=== PATIENT | female | born 1990 | race American Indian/Alaskan Native ===

== ENCOUNTER 2017-03-14 01:53 | Observation (INO) | payer OTHER ==
--- NOTE | 2017-03-14 02:51 | Ultrasound Report ---
FINAL REPORT PROCEDURE: US OB \T\gt; = 14 WEEKS FETUS TECHNIQUE: Real-time limited sonographic examination was performed for evaluation of placenta and fluid volume for each fetus with image documentation (1 or more fetuses). CPT 68059 HISTORY: FM, ELISABET, presentation, r/o abbruption, placenta p/ vag bleed COMPARISON: No prior studies are available for comparison. FINDINGS: MATERNAL Uterus: Within normal limits . Cervix length: 4.1 cm. Internal Os: Closed . FETUS IUP: Single living intrauterine . Position: Transverse. Placental position: Posterior, marginal previa. No abruption. Amniotic fluid volume: Normal . Heart rate and rhythm: 152 BPM, Regular . anatomic survey: Normal . MEASUREMENTS BPD: 6.4 centimeter. HC: 24.1 centimeter. AC: 20.9 centimeter. FL: 4.7 centimeter. Mean Gestational Age (composite criteria): 25 weeks 6 days. Ratio biometry: Normal . Estimated Weight: 878 grams. Interval growth: No prior studies. Estimated Due Date (earliest scan): 06/21/2017. IMPRESSION: 1. Single living intrauterine gestation at approximately 25 weeks 6 days. 2. EDC by US 06/21/2017.
--- NOTE | 2017-03-14 06:54 | History and Physical Report ---
History of Present Illness Date of examination: 03/14/17 Chief complaint: Vaginal bleeding History of present illness: 27-year-old at 25+6 weeks presents with above complaints and issues, she is a [facility] patient. Essential history this patient with known marginal previa with a prior bleed returns for the second episode of bleeding. She is currently incarcerated and I am unsure of the severity of her 1st bleed. She was not admitted to the hospital or any testing performed. In triage, her pad worn ~ 30 minutes ago is lightly stained. No active bleeding noted at this time. She complains of feeling contractions intermittently, no obvious contractions noted on the monitor. Ultrasound obtained today shows posterior marginal previa, no abruption. Cervical length is 4.1 cm and internal os is closed. Position is transverse. Estimated weight is 878 g. Past History Past Medical History: asthma (mild), migraines Past Surgical History: D&C (performed 09/11/2016) [employer] History: herpes. denies: chlamydia, gonorrhea, hepatitis B, hepatitis C, HIV, syphilis, trichomonas Social history: single, smoking, full code. denies: alcohol abuse, prescription drug abuse, IV drug use - Obstetrical History Expected Date of Delivery: 06/21/17 Actual Gestation: 25 Week(s) 6 Day(s) : 6 Para: 5 Hx # Term Pregnancies: 3 Medications and Allergies Allergies Allergy/AdvReac Type Severity Reaction Status Date / Time No Known Allergies Allergy Unverified 03/14/17 02:09 Review of Systems Constitutional: no fever, no chills, no weakness, no chronic headaches Cardiovascular: no chest pain, no orthopnea, no syncope, no lightheadedness, no shortness of breath, no dyspnea on exertion, no high blood pressure, no decreased exercise tolerance Respiratory: no cough with sputum, no excessive sputum, no shortness of breath, no dyspnea on exertion Gastrointestinal: no abdominal pain, no nausea, no vomiting, no heartburn Genitourinary: vaginal bleeding, no vaginal discharge, no leakage of fluid, no dysuria - Vital Signs Vital signs: Vital Signs Pulse Pulse Ox 102 H 96 03/14/17 03:07 03/14/17 03:07 Temp Pulse Resp BP Pulse Ox 108 H 105/60 82 L 03/14/17 06:53 03/14/17 06:39 03/14/17 06:53 - Physical Exam Cardiovascular: Regular rate, Normal S1, Normal S2 Lungs: Positive: Clear to auscultation, Normal air movement Abdomen: Positive: normal appearance, soft. Negative: distention, tenderness, guarding, rigidity Genitourinary (Female): Positive: normal external genitalia Uterus: Positive: enlarged (EFW ~ 1000). Negative: tender Adnexa: both: normal Extremities: Positive: normal - Obstetrical FHR: category 1 Results Result Diagrams: 03/14/17 10:22 All other labs normal. Assessment and Plan A: 27-year-old at 25+6 with Posterior marginal previa -Cat 1 tracing -No CTX's on toco -Pad lightly stained x ~ 30 min Issues -?2nd Episode of bleed -Short interval preg (s/p D&C at ~ 16 wks in 09/11/16) -Currently incarcerated -Transverse lie P: -It's possible her bleeding has resolved. -Will place pad at this time and observe -If patient still bleeding, will start magnesium per protocol, Celestone course and MFM consultation -Disposition after observation 1 hour -Keep nothing by mouth - Patient Problems (1) 25 to 26 weeks gestation of Current Visit: Yes Status: Acute (2) Marginal placenta previa Current Visit: Yes Status: Acute
[2017-03-14] MEDS ORDERED: COLACE PO PRN (07:04)
[2017-03-14] MEDS: ZOFRAN IV PRN ×3 (09:17→20:18)
[2017-03-14] MEDS: TYLENOL PO PRN ×3 (09:24→20:18)
--- NOTE | 2017-03-14 09:50 | Event Note ---
Date: 03/14/17 seen and examined, her pad is lightly stained no active bleeding. She is not amanda on the monitor. Plan at this point is to observe until 11-12 if still stable with allowed to eat and likely discharge home later in the afternoon
[2017-03-14] MEDS ORDERED: PRENATAL VITAMIN PO SCH (10:00)
--- NOTE | 2017-03-14 10:36 | Ultrasound Report ---
ULTRASOUND BIOPHYSICAL PROFILE: History: Decreased movement, bleeding Technique: Transabdominal ultrasound with Doppler interrogation. 2 - breathing movements 2 - movements 2 - posture and tone 2 - Qualitative amniotic fluid volume 8 - TOTAL SCORE OF POSSIBLE 8 Heart Rate (bpm) 152
[2017-03-14 11:15] LABS: Basophils % (Auto) 0.4 % (0.0-1.8); Eosinophils % (Auto) 2.9 % (0.0-4.3); Hematocrit 33.3 % (30.3-42.9); Mean Corpuscular HGB Conc 33 % (30-34); Mean Corpuscular Hemoglobin 30 pg (28-32); Mean Corpuscular Volume 92 fl (79-97); Platelet Count 212 K/mm3 (140-440); Red Blood Count 3.63 M/mm3 (3.65-5.03); Red Cell Distribution Width 18.7 % (13.2-15.2); White Blood Count 6.2 K/mm3 (4.5-11.0)
--- NOTE | 2017-03-14 12:19 | Event Note ---
Date: 03/14/17 Patient seen, still having intermittent episodes of bleeding. Her pad remains slightly stained but when she goes to use the restroom, she does have bright red blood running down her legs. She is still not amanda, vitals are stable. Plan is to allow patient to eat at this time. We'll keep patient in house for 24 hours observation. Have placed a new fresh pad, if pad shows evidence of severe heavy bleeding, we'll start Celestone course and magnesium.
[2017-03-14] MEDS ORDERED: LACTATED RINGERS 1,000 ML ONE (18:21)
[2017-03-14] MEDS: D5LR 1,000 ML IV SCH (20:10)
--- NOTE | 2017-03-14 20:36 | History and Physical Report ---
History of Present Illness Date of admission: 03/14/17 07:40 Chief complaint: I have a rash History of present illness: 27 YO Female with Migraine Headache, Asthma, HSV at 25 weeks gestation admitted to [facility] for evalaution of vaginal bleeding. Consult placed by Dr. Hurst for evaluation of rash. Pt seen and evaluated in mother-baby unit. Pt states that she has experienced a rash to her trunk, arms, and back over the past week. Pt states that she has been given a "cream" for the rash and that it has gotten better, but is still presents. Pt deneis fever, chill, CP, Palpitations, NVD, itching, or recent known ill contacts. Past History Past Medical History: other (migraine, asthma, HSV) Past Surgical History: Other (D&C) Social history: single, smoking, full code. denies: alcohol abuse, prescription drug abuse, IV drug use Medications and Allergies Allergies Allergy/AdvReac Type Severity Reaction Status Date / Time No Known Allergies Allergy Unverified 03/14/17 02:09 Active Meds: Active Medications Acetaminophen (Tylenol) 650 mg PO Q4H PRN PRN Reason: Pain MILD(1-3)/Fever >100.5/TELLEZ Last Admin: 03/14/17 20:18 Dose: 650 mg Docusate Sodium (Colace) 100 mg PO Q12H PRN PRN Reason: Constipation Last Admin: 03/14/17 13:44 Dose: 100 mg Dextrose/Lactated Ringer's (D5lr) 1,000 mls @ 125 mls/hr IV DIRECT MIRANDA Last Admin: 03/14/17 20:10 Dose: 125 mls/hr Multivitamins/Iron/Calcium ( Vitamin) 1 each PO QDAY MIRANDA Last Admin: 03/14/17 09:26 Dose: 1 each Ondansetron HCl (Zofran) 4 mg IV Q6H PRN PRN Reason: Nausea And Vomiting Last Admin: 03/14/17 20:18 Dose: 4 mg Review of Systems Constitutional: no weight loss, no weight gain, no fever, no chills, no sweats Ears, nose, mouth and throat: no ear pain, no ear discharge, no tinnitis, no decreased hearing, no nose pain Breasts: no change in shape, no swelling, no mass Cardiovascular: no chest pain, no orthopnea, no palpitations, no rapid/ irregular heart beat, no edema, no syncope, no shortness of breath Respiratory: no cough, no cough with sputum, no excessive sputum, no hemoptysis , no shortness of breath Gastrointestinal: no abdominal pain, no nausea, no vomiting, no diarrhea, no constipation, no change in bowel habits Genitourinary Female: no dysmenorrhea, no pelvic pain, no flank pain, no menorrhagia Rectal: no pain, no incontinence, no bleeding Musculoskeletal: no neck stiffness, no neck pain, no shooting arm pain, no arm numbness/tingling, no low back pain, no shooting leg pain Integumentary: rash, no pruritis, no redness, no sores, no wounds, no jaundice Neurological: no head injury, no transient paralysis, no paralysis, no weakness , no parathesias, no numbness, no tingling, no seizures, no syncope Psychiatric: no anxiety, no memory loss, no change in sleep habits, no sleep disturbances, no insomnia Endocrine: no cold intolerance, no heat intolerance, no polyphagia, no excessive thirst, no polydipsia, no polyuria, no nocturia, no excessive sweating Hematologic/Lymphatic: no easy bruising, no easy bleeding Allergic/Immunologic: no urticaria, no allergic rhinitis, no wheezing Exam - Constitutional Vitals: Temp Pulse Resp BP Pulse Ox 97.4 F L 78 18 103/71 82 L 03/14/17 20:21 03/14/17 20:12 03/14/17 20:21 03/14/17 20:12 03/14/17 06:53 General appearance: Present: no acute distress, well-nourished - EENT Eyes: Present: PERRL ENT: hearing intact, clear oral mucosa - Neck Neck: Present: supple, normal ROM - Respiratory Respiratory effort: normal Respiratory: bilateral: CTA - Cardiovascular Heart Sounds: Present: S1 & S2. Absent: rub, click - Extremities Extremities: pulses symmetrical, No edema Peripheral Pulses: within normal limits - Abdominal General gastrointestinal: Present: soft, non-tender, non-distended, normal bowel sounds Female genitourinary: Present: normal - Integumentary Integumentary: Present: clear, warm, dry, rash (diffuse macular rash to back arms and trunk) - Musculoskeletal Musculoskeletal: gait normal, strength equal bilaterally - Psychiatric Psychiatric: appropriate mood/affect, intact judgment & insight - Neurologic Neurologic: CNII-XII intact, moves all extremities Results - Labs CBC & Chem 7: 03/14/17 10:22 Labs: Abnormal lab results 03/14/17 Range/Units 10:22 RBC 3.63 L (3.65-5.03) M/mm3 RDW 18.7 H (13.2-15.2) % Assessment and Plan - Patient Problems (1) Dermatitis Current Visit: Yes Status: Acute Plan to address problem: Solumedrol 40 mgIV x 1 dose. Tapering dose of oral steroids. Pt may be discharged on medrol dose pack, or prednisone taper for a total of 5 days.
[2017-03-14] MEDS ORDERED: AMBIEN PO PRN (22:39)
[2017-03-15] MEDS: ZOFRAN IV PRN (03:00)
[2017-03-15] MEDS ORDERED: ALUM-MAG HYDROX-SIMETH 200-200-20MG/5ML PO PRN (03:42)
[2017-03-15] MEDS: D5LR 1,000 ML IV SCH (03:56)
[2017-03-15 06:50] VITALS: BP 91/55
--- NOTE | 2017-03-15 06:53 | Progress Note ---
Assessment and Plan A: 27-year-old at 26 with Posterior marginal previa -Cat 1 tracing -No CTX's on toco -Pad lightly stained x ~ 24 hr observation Issues -??2nd Episode of bleed (1st bleed is questionable, was not admitted suspect smear on Pad as well) -Short interval preg (s/p D&C at ~ 16 wks in 09/11/16) -Currently incarcerated -Transverse lie -Cervical length ~ 4.0 cm (03/14/17) -?PUPPS P: -Will discharge home at this time -Discussed warning signs and symptoms to return to the hospital - Patient Problems (1) 25 to 26 weeks gestation of Current Visit: Yes Status: Acute (2) Marginal placenta previa Current Visit: Yes Status: Acute Subjective - Subjective Date of service: 03/15/17 Principal diagnosis: IUP at 26 wks Interval history: Patient seen, stable overnight. Her pads worn overnight stained with blood and grape size clots seen on pad otherwise unremarkable. She has no contractions Ultrasound obtained yesterday (03/15/17) shows posterior marginal previa, no abruption. Cervical length is 4.1 cm and internal os is closed. position is transverse. Estimated weight is 878 g. Patient reports: new complaints, movement normal, no loss of fluid, no vaginal bleeding (smear on PAD), no contractions Objective - Vital Signs Vital Signs: Vital Signs - 12hr 03/14/17 03/14/17 03/14/17 19:11 20:12 20:18 Temperature Pulse Rate 76 78 Respiratory 18 Rate Blood Pressure 102/56 103/71 O2 Sat by Pulse Oximetry 03/14/17 03/14/17 03/14/17 20:21 21:11 23:11 Temperature 97.4 F L Pulse Rate 82 75 Respiratory 18 Rate Blood Pressure 95/51 96/55 O2 Sat by Pulse Oximetry 03/14/17 03/15/17 03/15/17 23:54 00:11 01:11 Temperature 98.4 F Pulse Rate 91 H 86 Respiratory 18 Rate Blood Pressure 90/51 85/52 O2 Sat by Pulse Oximetry 03/15/17 03/15/17 03/15/17 02:11 03:01 03:02 Temperature 98.0 F Pulse Rate 103 H 90 Respiratory 18 Rate Blood Pressure 111/84 O2 Sat by Pulse 77 L 100 Oximetry 03/15/17 03/15/17 03/15/17 03:07 03:11 03:12 Temperature Pulse Rate 90 91 H 91 H Respiratory Rate Blood Pressure 76/46 O2 Sat by Pulse 97 96 Oximetry 03/15/17 03/15/17 03/15/17 03:17 03:22 03:27 Temperature Pulse Rate 93 H 93 H 91 H Respiratory Rate Blood Pressure O2 Sat by Pulse 97 98 97 Oximetry 03/15/17 03/15/17 03/15/17 03:32 03:37 03:42 Temperature Pulse Rate 94 H 100 H 105 H Respiratory Rate Blood Pressure O2 Sat by Pulse 97 98 98 Oximetry 03/15/17 03/15/17 03/15/17 03:49 03:54 04:03 Temperature Pulse Rate 92 H 109 H 75 Respiratory Rate Blood Pressure 105/56 O2 Sat by Pulse 99 97 78 L Oximetry 03/15/17 03/15/17 03/15/17 04:45 05:11 05:43 Temperature Pulse Rate 81 87 Respiratory Rate Blood Pressure 85/48 O2 Sat by Pulse 0 L 78 L Oximetry 03/15/17 03/15/17 03/15/17 05:45 06:11 06:34 Temperature Pulse Rate 91 H 86 Respiratory Rate Blood Pressure 103/64 80/41 O2 Sat by Pulse 85 Oximetry 03/15/17 03/15/17 03/15/17 06:35 06:40 06:45 Temperature Pulse Rate 104 H 88 88 Respiratory Rate Blood Pressure O2 Sat by Pulse 85 97 97 Oximetry 03/15/17 03/15/17 03/15/17 06:50 06:52 06:55 Temperature Pulse Rate 71 81 101 H Respiratory Rate Blood Pressure 91/55 O2 Sat by Pulse 96 97 Oximetry - Exam Abdomen: Present: normal appearance, soft. Absent: distention, tenderness, guarding, rigidity - Labs Labs: Abnormal Labs 03/14/17 10:22 RBC 3.63 L RDW 18.7 H Laboratory Results - last 24 hr 03/14/17 03/14/17 10:21 10:22 WBC 6.2 RBC 3.63 L Hgb 11.0 Hct 33.3 MCV 92 MCH 30 MCHC 33 RDW 18.7 H Plt Count 212 Lymph % (Auto) 26.5 [place] % (Auto) 7.3 Eos % (Auto) 2.9 Baso % (Auto) 0.4 Lymph # 1.6 [place] # 0.5 Eos # 0.2 Baso # 0.0 Seg Neutrophils % 62.9 Seg Neutrophils # 3.9 Blood Type B POSITIVE Antibody Screen Negative
--- NOTE | 2017-03-15 07:10 | Discharge Summary ---
Providers - Providers Date of Admission: 03/14/17 07:40 Date of discharge: 03/15/17 Attending physician: JAIME GUTIÉRREZ MD 03/14/17 17:21 Consult to Physician [CONS] Routine Consulting Provider: MAGNOLIA GU Reason For Exam: itching Place consult to:: physician Notified:: yes Primary care physician: JAIME GUTIÉRREZ MD Hospitalization Reason for admission: IUP - , vaginal bleeding Discharge diagnosis: other (IUP at 26 wks with Marginal Previa) Hospital course: 27-year-old admitted at 25+6 weeks presents with above complaints and issues, she is a [facility] patient. Essential history this patient with known Posterior marginal previa with a questionable ??prior bleed returns for the second episode of bleeding. She is currently incarcerated and I am unsure of the severity of her 1st bleed. She was not admitted to the hospital or any testing performed. Ultrasound obtained 03/14/17 showed posterior marginal previa, no abruption. Cervical length is 4.1 cm and internal os is closed. Position is transverse. Estimated weight is 878 g. BPP was 8 out of 8 and NST was reassuring She was admitted and observed overnight x ~ 24 hrs, her pad was only lightly stained. No active bleeding noted. She had no regular consistent contractions. As she remained stable with no active bleeding, not deemed candidate for steroids at this time. Advised patient that if she is readmitted for bleeding will administer steroids at that time. Condition at discharge: Good Disposition: DC-01 TO HOME OR SELFCARE - Discharge Diagnoses (1) 25 to 26 weeks gestation of Status: Acute (2) Marginal placenta previa Status: Acute Plan - Discharge Medications Prescriptions: methylPREDNISolone [Medrol Dose Antione] 4 mg PO DAILY #1 pack - Provider Discharge Summary Activity: no heavy lifting 4 weeks, no strenuous exercise, other (Pelvic rest until delivery) Diet: routine Additional instructions: [] Smoking cessation referral if applicable(refer to patient education folder for contact #) [] Refer to [facility]'s [facility] Booklet Call your doctor immediately for: * Fever > 100.5 * Heavy vaginal bleeding ( >1 pad per hour) * Severe persistent headache * Shortness of breath * Reddened, hot, painful area to leg or breast * Drainage or odor from incision. * Keep incision clean and dry at all times and follow doctor's instructions regarding bathing/showering - Follow up plan Follow up: JAIME HERRING MD [Primary Care Provider] - 7 Days Forms: BROCK Discharge Summary
--- NOTE | 2017-03-15 17:48 | Event Note ---
Date: 03/15/17 Patient discharged before i evaluated her.
== END 2017-03-15 07:30 | disposition home or self-care (01) ==
LOC: TRG 01:53 → EEVIPCON 07:40 → LD 07:40
PROVIDERS: ADMIT Obstetrics & Gynecology; ATTEND Obstetrics & Gynecology
DX: O44.32 Partial placenta previa with hemorrhage, second trimester (principal); J45.909 Unspecified asthma, uncomplicated; O26.892 Other specified pregnancy related conditions, second trimester; G43.909 Migraine, unspecified, not intractable, without status migrainosus; O99.712 Diseases of the skin and subcutaneous tissue complicating pregnancy, second trimester; L30.9 Dermatitis, unspecified; Z3A.25 25 weeks gestation of pregnancy
CPT/HCPCS: 36415; 76805; 76819; 85025; 86850; 86900; 86901; 96361; 96374; 96375; 96376; G0378; J2405; J2920; J7120; J7121